=== PATIENT | male | born 1985 | race Asian ===

== ENCOUNTER 2020-11-08 13:48 | Emergency (ER) | payer OTHER ==
[~2020-11-08] VITALS: Ht 170.2 cm; Wt 77.0 kg
[2020-11-08 14:29] VITALS: BP 120/84
[2020-11-08 15:38] LABS: COVID AG,FIA SOURCE NASOPHARYNGEAL
== END 2020-11-08 14:55 | disposition home or self-care (01) ==
LOC: EMS 13:48
DX: Z20.828 Contact with and (suspected) exposure to other viral communicable diseases (principal)
CPT/HCPCS: 87426; 99283; C9803; U0003